=== PATIENT | female | born 1985 | race Caucasian/White ===

== ENCOUNTER 2016-12-25 09:38 | Day surgery (SDC) | payer BC ==
[~2016-12-25] VITALS: Ht 157.5 cm; Wt 78.6 kg
[~2016-12-25 09:38] MED LIST: HUMALOG100 U/ML SC; LANTUS100 U/ML SQ; NEXIUM 40MG40 MG PO; PRENATAL1 TA1 PO; TOPROL XL50 MG PO; XANAX .25M0.25 MG/TA PO
[2016-12-25 10:04] VITALS: BP 126/78; PULSE 79; TEMP 97.6
[2016-12-25] MEDS ORDERED: NOVOLOG 100U100 U/M1 SQ (10:31)
[2016-12-25] MEDS ORDERED: VITAMIN D31000 IU PO (10:32)
[2016-12-25] MEDS ORDERED: PROBIOTIC FORMU1 CAP PO (10:32)
[2016-12-25] MEDS ORDERED: MAGNESIUM250 M1 PO (10:32)
[2016-12-25] MEDS ORDERED: MULTI VITAMINS1 TAB PO (10:32)
[2016-12-25] MEDS ORDERED: GLUCOSAMINE 1000 PO (10:33)
[2016-12-25 12:00] VITALS: BP 127/101; PULSE 90; TEMP 97.7
[2016-12-25 12:15] VITALS: BP 116/86; PULSE 84
[2016-12-25 12:30] VITALS: BP 118/87; PULSE 89
== END 2016-12-25 12:48 | disposition home or self-care (01) ==
LOC: SDCO 09:38
DX: K31.89 Other diseases of stomach and duodenum (principal); D72.820 Lymphocytosis (symptomatic); K44.9 Diaphragmatic hernia without obstruction or gangrene; K31.84 Gastroparesis; K63.9 Disease of intestine, unspecified; F41.9 Anxiety disorder, unspecified; E11.9 Type 2 diabetes mellitus without complications; Z79.4 Long term (current) use of insulin
CPT/HCPCS: OP; J2704; J7030

== ENCOUNTER → 2018-11-05 | Outpatient (CLI) | payer BC ==
[~2018-11-05] MED LIST changes: +GLUCOSAMINE 1000 PO; +MAGNESIUM250 M1 PO; +MULTI VITAMINS1 TAB PO; +NOVOLOG 100U100 U/M1 SQ; +PROBIOTIC FORMU1 CAP PO; +VITAMIN D31000 IU PO
== END ==
LOC: COL.VAS 07:48
DX: R06.02 Shortness of breath (principal)
CPT/HCPCS: J7674

== ENCOUNTER 2023-07-06 18:15 | Emergency (ER) | payer BC ==
[~2023-07-06] VITALS: Ht 157.5 cm; Wt 81.8 kg
[2023-07-06 18:25] VITALS: TEMP 97.4
[2023-07-06 19:22] VITALS: BP 125/87; PULSE 102
== END 2023-07-06 19:22 | disposition home or self-care (01) ==
LOC: COL.ER 18:15
DX: T19.2XXA Foreign body in vulva and vagina, initial encounter (principal); Z87.891 Personal history of nicotine dependence; W44.8XXA Other foreign body entering into or through a natural orifice, initial encounter